=== PATIENT | female | born 1995 | race American Indian/Alaskan Native ===

== ENCOUNTER 2018-12-28 21:07 | Emergency (ER) | payer SELFPAY ==
[2018-12-28] MEDS ORDERED: NORCO 5/325 PO ONE (21:31)
[2018-12-28] MEDS ORDERED: IBUPROFEN PO ONE (21:31)
--- NOTE | 2018-12-28 21:33 | Emergency Department Report ---
HPI - General Time Seen by Provider: 12/28/18 21:15 - HPI HPI: Room 3 The patient is a 23-year-old female presenting with chief complaint of chest pain, sore throat, right flank pain and subjective fever. Patient states her symptoms began 3 days ago with a sore throat. Patient states 2 days ago she developed pain in the right flank. Patient denies dysuria or hematuria. Bg rick denies nausea or vomiting. The patient says she's had a subjective fever and then developed chest pain yesterday. Patient admits to substernal chest pain described as a tightness Location: [See above] Duration: [See above] Quality: [See above] Severity: [See above] Modifying factors: [see above] Context: [see above] Mode of transportation: [not driving] ED Past Medical Hx - Surgical History Past Surgical History?: No - Family History Family history: no significant - Social History Smoking Status: Never Smoker Substance Use Type: None (denies illicit drug use), Alcohol (occasional) - Medications Home Medications: Home Medications Medication Instructions Recorded Confirmed Last Taken Type Ibuprofen [Motrin 800 MG tab] 800 mg PO Q8HR PRN #20 tablet 12/29/18 Unknown Rx levoFLOXacin [Levaquin] 750 mg PO QDAY #10 tablet 12/29/18 Unknown Rx traMADol [Ultram] 50 mg PO Q6HR PRN #10 tablet 12/29/18 Unknown Rx ED Review of Systems ROS: Stated complaint: FEVER/SORE THROAT/CHEST PAIN Other details as noted in HPI Constitutional: fever (subjective) Eyes: denies: eye pain ENT: denies: throat pain Respiratory: no symptoms reported Cardiovascular: chest pain Endocrine: no symptoms reported Gastrointestinal: denies: abdominal pain, nausea, vomiting Genitourinary: denies: dysuria, hematuria Musculoskeletal: other (right flank pain) Neurological: denies: headache Physical Exam - Physical Exam Physical Exam: GENERAL: The patient is well-developed well-nourished female lying on stretcher not appearing to be in acute distress. [] HEENT: Normocephalic. Atraumatic. Extraocular motions are intact. Uvula midline, no exudate seen. No trismus. No hot potato voice. NECK: Supple. No stridor CHEST/LUNGS: Clear to auscultation. There is no respiratory distress noted. HEART/CARDIOVASCULAR: Regular. There is no tachycardia. There is no gallop rub or murmur. ABDOMEN: Abdomen is soft, nontender. Patient has normal bowel sounds. There is no abdominal distention. SKIN: There is no rash. There is no edema. There is no diaphoresis. NEURO: The patient is awake, alert, and oriented. The patient is cooperative. The patient has normal speech MUSCULOSKELETAL: There is right CVA tenderness. There is no evidence of acute injury. ED Medical Decision Making - Lab Data Result diagrams: 12/28/18 21:28 12/28/18 21:28 - Radiology Data Radiology results: report reviewed (lateral soft tissue neck x-ray, CT chest), image reviewed (lateral soft tissue neck x-ray, CT chest) interpreted by me: Lateral soft tissue neck x-ray- no prevertebral swelling. No evidence of epiglottitis [address] [address] XRay Report Signed Patient: JALEN ROWELL MR#: [id number] : 1995 Acct:[id number] Age/Sex: 23 / F ADM Date: 12/28/18 Loc: ED Attending Dr: Braxton bojorquez Physician: WANDER DELA CRUZ MD Date of Service: 12/28/18 Procedure(s): XR neck soft tissue Accession Number(s): [id number] cc: WANDER DELA CRUZ MD Fluoro Time In Minutes: AP AND LATERAL SOFT TISSUE NECK 12/28/2018 INDICATION / CLINICAL INFORMATION: sore throat. COMPARISON: None available. FINDINGS: Prevertebral soft tissues are normal. No abnormal gas collections are identified. The epiglottis is normal in contour. Signer Name: Lj Mar MD Signed: 12/28/2018 11:44 PM Workstation Name: [id number] Transcribed By: FÉLIX Dictated By: Lj Mar MD Electronically Authenticated By: Lj Mar MD Signed Date/Time: 12/28/182343 DD/ 42 TD/TT: [address] [address] Cat Scan Report Signed Patient: JALEN ROWELL MR#: [id number] : 1995 Acct:[id number] Age/Sex: 23 / F ADM Date: 12/28/18 Loc: ED Attending Dr: Ordering Physician: WANDER DELA CRUZ MD Date of Service: 12/28/18 Procedure(s): CT angio chest Accession Number(s): [id number] cc: WANDER DELA CRUZ MD CT angio chest INDICATION / CLINICAL INFORMATION: Chest pain for two days. Hurts in the middle of her chest . TECHNIQUE: Precontrast bolus timing images were obtained followed by postcontrast axial and reformatted images. 3-plane MIP reconstructions were performed at an independent workstation by the technologist. All CT scans at [facility] s location are performed using CT dose reduction for ALARA by means of automated exposure control. COMPARISON: None available. FINDINGS: Enhancement of the pulmonary arteries is normal bilaterally. Thoracic aortic enhancement is normal. No pericardial effusion or mediastinal adenopathy. No acute lung disease. Skeletal structures are normal. Limited upper abdominal images are straight no abnormality. IMPRESSION: 1. Negative chest CTA. Signer Name: Lj Mar MD Signed: 12/28/2018 11:10 PM Workstation Name: [id number] Transcribed By: GA Dictated By: Lj Mar MD Electronically Authenticated By: Lj Mar MD Signed Date/Time: 12/28/182309 DD/ 07 TD/TT: - Differential Diagnosis pharyngitis, pyelonephritis, PE, costochondritis, ACS, pneumonia Critical care attestation.: If time is entered above; I have spent that time in minutes in the direct care of this critically ill patient, excluding procedure time. ED Disposition Clinical Impression: Pyelonephritis, Sore throat, Atypical chest pain Disposition: DC-01 TO HOME OR SELFCARE Is pt being admited?: No Does the pt Need Aspirin: No Condition: Stable Instructions: Chest Pain (ED) Additional Instructions: Return to the emergency department immediately should you develop worsening symptoms, fever, inability to tolerate food or liquid or any other concerns. Prescriptions: levoFLOXacin [Levaquin] 750 mg PO QDAY #10 tablet Ibuprofen [Motrin 800 MG tab] 800 mg PO Q8HR PRN #20 tablet PRN Reason: Pain, Moderate (4-6) traMADol [Ultram] 50 mg PO Q6HR PRN #10 tablet PRN Reason: Pain Referrals: CARBUCCIA,VICK, MD [Primary Care Provider] - 3-5 Days Time of Disposition: 00:07
[2018-12-28] MEDS ORDERED: NACL 0.9% 1000 ML 1,000 ML IV ONE ×2 (21:39)
[2018-12-28 21:40] LABS: Basophils % (Auto) 0.2 % (0.0-1.8); Hematocrit 32.4 % (30.3-42.9); Hemoglobin 10.4 gm/dl (10.1-14.3); Lymphocytes # (Auto) 1.4 K/mm3 (1.2-5.4); Lymphocytes % (Auto) 13.7 % (13.4-35.0); Mean Corpuscular HGB Conc 32 % (30-34); Monocytes # (Auto) 1.3 K/mm3 (0.0-0.8); Monocytes % (Auto) 12.5 % (0.0-7.3); Platelet Count 246 K/mm3 (140-440); Red Blood Count 4.67 M/mm3 (3.65-5.03); Red Cell Distribution Width 18.4 % (13.2-15.2)
[2018-12-28 21:41] LABS: Mean Corpuscular Volume 70 fl (79-97)
[2018-12-28 21:57] LABS: BUN/Creatinine Ratio 9; Blood Urea Nitrogen 10 mg/dL (7-17); Hemolysis Index 2
[2018-12-28 22:03] LABS: Creatine Kinase MB < 1.0 ng/mL (0.0-4.0)
[2018-12-28 23:15] LABS: Amorphous Crystals,Urine 1+; Bacteria,Urine 1+ /HPF (Negative); Bilirubin,Urine NEG (Negative); Blood,Urine SM (Negative); Color,Urine Amber (Yellow); Mucus,Urine 2+ /HPF; Urobilinogen,Urine < 2.0 mg/dL (<2.0)
--- NOTE | 2018-12-28 23:15 | Cat Scan Report ---
CT angio chest INDICATION / CLINICAL INFORMATION: Chest pain for two days. Hurts in the middle of her chest . TECHNIQUE: Precontrast bolus timing images were obtained followed by postcontrast axial and reformatted images. 3-plane MIP reconstructions were performed at an independent workstation by the technologist. All CT scans at this location are performed using CT dose reduction for ALARA by means of automated e xposure control. COMPARISON: None available. FINDINGS: Enhancement of the pulmonary arteries is normal bilaterally. Thoracic aortic enhancement is normal. No pericardial effusion or mediastinal adenopathy. No acute lung disease. Skeletal structures are normal. Limited upper abdominal images are straight no abnormality. IMPRESSION: 1. Negative chest CTA. Signer Name: Lj Mar MD Signed: 12/28/2018 11:10 PM Workstation Name: [id number]
[2018-12-28 23:19] LABS: WBC,Urine > 182.0 /HPF (0.0-6.0)
--- NOTE | 2018-12-28 23:48 | XRay Report ---
AP AND LATERAL SOFT TISSUE NECK 12/28/2018 INDICATION / CLINICAL INFORMATION: sore throat. COMPARISON: None available. FINDINGS: Prevertebral soft tissues are normal. No abnormal gas collections are identified. The epiglottis is normal in contour. Signer Name: Lj Mar MD Signed: 12/28/2018 11:44 PM Workstation Name: [id number]
[2018-12-29 00:01] VITALS: BP 111/56
[2018-12-29] MEDS ORDERED: LEVAQUIN PO ONE (00:03)
== END 2018-12-29 01:08 | disposition home or self-care (01) ==
LOC: ED 21:07
DX: N12 Tubulo-interstitial nephritis, not specified as acute or chronic (principal); R07.89 Other chest pain; J02.9 Acute pharyngitis, unspecified
CPT/HCPCS: 36415; 70360; 71275; 80048; 81001; 82550; 82553; 83690; 84484; 84703; 85025; 85379; 99284; J7030; Q9967